=== PATIENT | male | born 1985 | race Caucasian/White ===

== ENCOUNTER 2023-06-14 20:21 | Emergency (ER) | payer OTHER, SELFPAY ==
[2023-06-14 20:26] VITALS: BP 175/96
--- NOTE | 2023-06-14 22:55 | ED.GENMED ---
History of Present Illness
General
Chief Complaint: Skin Surface Trauma
Source: patient
Exam Limitations: none
Time Seen by Provider: 06/14/23 21:40
Nursing documentation reviewed up to this point in time: agreed with
Travel History
Have you had any contact with someone who has COVID-19?: No
Do you have any symptoms of coronavirus? Fever > 100 degrees, chills, cough, shortness of breath, sore throat, loss of taste or smell, muscle aches, or headache?: No
History of Present Illness
History of Present Illness:
37-year-old male presenting to the emergency department today after slipping on steps prior to arrival hitting his left elbow but denies additional injuries no head trauma no loss of consciousness no numbness or weakness.
Review of Systems
Review of Systems
Allergies reviewed?: Yes
All Other Systems: ROS reviewed and negative except as documented in HPI and ROS
Phy Exam
Physical Exam
Physical Exam:
GENERAL: Alert , in no apparent distress
EYE: pupils equal and reactive
NECK: Supple, no significant adenopathy.
ENT: o/p clr, mmm.
CARDIAC: Regular rate and rhythm .
LUNGS: Clear breath sounds bilaterally, no acute respiratory distress, no wheezes/rales/rhonchi
ABDOMEN: Soft, without focal tenderness, no r/g, no cvat
NEUROLOGICAL: Alert and oriented, no focal neuro deficits
SKIN: 3 cm laceration directly overlying the left olecranon. Warm and dry, skin intact.
MUSCULOSKELETAL: Good range of motion and strength of the upper extremities bilaterally. No edema, well perfused.
PSYCH: Normal and appropriate interaction.
Course
Vital Signs
Initial and Last Documented VS:
Initial Vital Signs
Temp Pulse Resp BP Pulse Ox
98.3 F 113 18 175/96 100
06/14/23 20:26 06/14/23 20:26 06/14/23 20:26 06/14/23 20:26 06/14/23 20:26
Last Documented Vital Signs
Temp Pulse Resp BP Pulse Ox
98.3 F 113 18 175/96 100
06/14/23 20:26 06/14/23 20:26 06/14/23 20:26 06/14/23 20:26 06/14/23 20:26
Procedures
Laceration Closure
Left Elbow:
Status of Wound: clean
Size of Wound in cm: 3
Description of Wound Edges: sharp
Preparation: cleaned with saline
Anesthesia: 1% Lidocaine with epi
Revision/Debridement: routine- no revision and irrigate-direct pressure
Wound exploration: explored to base- no FB and no tendon involvement
Type of Closure: single layer closure and interrupted sutures
Skin Closure Material: 4-0 nylon
Number of sutures: 3
MDM/Problems Addressed
MDM/Problems Addressed:
37-year-old male presenting to the emergency department today with concerns of a laceration overlying the left macron after ground-level fall prior to arrival. No additional injuries. Laceration was cleaned thoroughly and 3 sutures placed.
Patient is up-to-date with his tetanus shot and otherwise very low risk for infection. Otherwise stable for outpatient management return precautions given. Will follow-up in 12 to 14 days for suture removal.
*Critical Care Note
Total Time (30-74mins, 75-104mins- exclusive of procedures): Not Applicable
ED Attending Note
-
Portions of this chart may have been created with voice recognition software.� Occasional wrong word or��sound alike� substitutions may have occurred due to the inherent limitations of voice recognition software.
Discharge Plan
Departure
Patient Disposition: Home (Routine Discharge)
Date of Disposition: 06/14/23
Time of Disposition: 22:55
Patient with high blood pressure during this ER visit?: No
Condition: Good
Covid-19: Not Applicable
Discharge Problem:
Elbow laceration
Instructions: Laceration Repair With Stitches (DC)
Referrals:
UNKNOWN - PT DOES,NOT KNOW [Family Provider] -
Activity Restrictions/Additional Instructions:
You came to the emergency department today with concerns of laceration to your elbow. This was cleaned thoroughly and closed with 3 total sutures. Please have this removed in 12 to 14 days. In the meantime please keep the area clean and covered.
Return to the emergency department for any worsening, new or concerning symptoms.
Interventions
Interventions:
*Risk Screen - Suicide Last Done: 06/14/23 21:50
*General Assessment Last Done: 06/14/23 21:50
*Neglect/Abuse Screening Last Done: 06/14/23 21:50
ED-Skin Assessment Last Done: 06/14/23 20:55
Discharge Date and Time
Print Language: [id number]
[2023-06-14 23:10] VITALS: BP 138/74
== END 2023-06-14 23:11 | disposition home or self-care (01) ==
LOC: EMR 20:21
PROVIDERS: EMERGENCY PHYSICIAN Emergency Medicine
DX: S51.012A Laceration without foreign body of left elbow, initial encounter (principal); W10.9XXA Fall (on) (from) unspecified stairs and steps, initial encounter
CPT/HCPCS: 99282; 12002